=== PATIENT | male | born 1965 | race Native Hawaiian/Other Pacific Islander ===

== ENCOUNTER 2016-09-04 14:38 | Outpatient (CLI) | payer OTHER | END 2016-09-04 15:38 | disposition home or self-care (01) | LOC: EDSTATUS 14:38 → RAD 14:38 → EDBD 14:38 → RAD 14:41 | DX: M54.5 Low back pain (principal); M54.6 Pain in thoracic spine; M54.2 Cervicalgia; M25.511 Pain in right shoulder ==